=== PATIENT | male | born 1975 | race Two or more races ===

== ENCOUNTER 2019-05-04 05:12 | Day surgery (SDC) | payer OTHER | END 2019-05-04 10:25 | disposition home or self-care (01) | LOC: AMB-ENDOS 05:12 | DX: K29.50 Unspecified chronic gastritis without bleeding (principal); K44.9 Diaphragmatic hernia without obstruction or gangrene ==

== ENCOUNTER 2020-04-10 06:00 | Day surgery (SDC) | payer OTHER | END 2020-04-10 16:30 | disposition home or self-care (01) | LOC: AMB-ENDOS 06:00 | PROVIDERS: ATTEND Surgery | DX: D12.3 Benign neoplasm of transverse colon (principal); Z20.828 Contact with and (suspected) exposure to other viral communicable diseases ==